=== PATIENT | female | born 1940 | race Caucasian/White ===

== ENCOUNTER 2020-08-04 00:06 | Inpatient (IN) | payer MEDICARE ==
[~2020-08-04] VITALS: Ht 162.6 cm; Wt 55.1 kg
[2020-08-04] MEDS ORDERED: MECLIZINE HCL25 MG PO (03:18)
[2020-08-04] MEDS ORDERED: VALIUM 5 MG TAB5 MG PO (03:19)
[2020-08-04] MEDS ORDERED: ATENOLOL100 MG PO (03:20)
[2020-08-04] MEDS ORDERED: LASIX20 MG PO (03:20)
[2020-08-04] MEDS ORDERED: VITAMIN D21250 MCG PO (03:23)
[2020-08-04] MEDS ORDERED: PLAVIX 75 MG TA75 MG PO (03:24)
[2020-08-04] MEDS ORDERED: KLOR-CON 1010 MEQ PO (03:24)
[2020-08-04] MEDS ORDERED: ASPIRIN 325MG325 MG PO (03:24)
[2020-08-04] MEDS ORDERED: IPRAT-ALBUT 0.5-3 ML INH (03:25)
[2020-08-04] MEDS ORDERED: PROTONIX20 MG PO (03:25)
[2020-08-04] MEDS ORDERED: LEVOTHYROXINE50 MC1 PO (03:25)
[2020-08-04] MEDS ORDERED: VENTOLIN HFA 66.7 GM INH (03:26)
[2020-08-04] MEDS ORDERED: VITAMIN B-1000 MCG/1 INJ (03:28)
[2020-08-04] MEDS ORDERED: HYDROCODONE-AC1 EAC1 PO (03:29)
[2020-08-04 05:27] LABS: HEMOGLOBIN 10.9 gm/dl (12.3-15.3); RED BLOOD COUNT 3.98 M/UL (4.00-5.10); WHITE BLOOD COUNT 9.7 K/UL (4.5-11.0)
[2020-08-04 05:58] LABS: BUN/CREATININE RATIO 28 (0-10)
--- NOTE | 2020-08-04 13:00 | NUR ---
REPORT CALLED TO ROBBY FARLEY ON [facility] 5 WITH ALL QUESTIONS ASKED AND ANSWERED
[2020-08-05 03:09] LABS: HEMOGLOBIN 10.4 gm/dl (12.3-15.3); RED BLOOD COUNT 3.84 M/UL (4.00-5.10)
[2020-08-05 03:31] LABS: BUN/CREATININE RATIO 29 (0-10)
[2020-08-05 11:01] LABS: HEMOGLOBIN 9.9 gm/dl (12.3-15.3); RED BLOOD COUNT 3.7 M/UL (4.00-5.10); WHITE BLOOD COUNT 10.6 K/UL (4.5-11.0)
[2020-08-06 05:20] LABS: HEMOGLOBIN 8.4 gm/dl (12.3-15.3)
[2020-08-06 05:21] LABS: RED BLOOD COUNT 3.08 M/UL (4.00-5.10); WHITE BLOOD COUNT 15.4 K/UL (4.5-11.0)
[2020-08-07 06:13] LABS: HEMOGLOBIN 7.8 gm/dl (12.3-15.3); RED BLOOD COUNT 2.87 M/UL (4.00-5.10)
[2020-08-07 06:14] LABS: WHITE BLOOD COUNT 11.1 K/UL (4.5-11.0)
--- NOTE | 2020-08-07 14:54 | NUR ---
patient pulse ox decrease to 70's-80's in fraction of a second, instructed patient to perform deep breathing and pulse ox increase to 100. no s/sx of respiratory distress noted. nurse seen the pulse ox reading from the monitor in 5th floor.
--- NOTE | 2020-08-07 15:28 | NUR ---
contacted tele and informed of patient telemetry box appears to be not working. patient has been going in and out of the telemetry reading. notified telebox to send a new telemetry bpx. continue to monitor patient with pulse ox reading 70's to 80's range. patient continue to show no s/sx of respiratory insufficiency. pulse ox will go to 95-98 range
--- NOTE | 2020-08-07 15:48 | NUR ---
frequent fluctuations of pulse ox reading noted. request to resend another cable. patient fingers cold to touch maybe another variant for having different fluactuations on pulse ox reading. patient cont to show no s/sx of respiratory insufficiency.
--- NOTE | 2020-08-07 16:31 | NUR ---
after changing site of where to obtain pulse ox sat, patient sat on monitor ranges 100%.
[2020-08-07 19:39] LABS: HEMOGLOBIN 7.8 gm/dl (12.3-15.3); RED BLOOD COUNT 2.85 M/UL (4.00-5.10); WHITE BLOOD COUNT 10.8 K/UL (4.5-11.0)
[2020-08-08 03:52] LABS: HEMOGLOBIN 7.4 gm/dl (12.3-15.3); RED BLOOD COUNT 2.76 M/UL (4.00-5.10); WHITE BLOOD COUNT 10.2 K/UL (4.5-11.0)
[2020-08-08 04:15] LABS: BUN/CREATININE RATIO 32 (0-10)
[2020-08-09 08:10] LABS: HEMOGLOBIN 7.5 gm/dl (12.3-15.3); RED BLOOD COUNT 2.78 M/UL (4.00-5.10); WHITE BLOOD COUNT 12.7 K/UL (4.5-11.0)
--- NOTE | 2020-08-09 15:31 | NUR ---
ATTEMPTED TO CONTACT PATIENTS DAUGHTER FOR CONSENT FOR BLOOD TRANSFUSION AT THIS TIME WITH NO ANSWER. LEFT A MESSAGE WITH NO RESPSONSE STILL. WILL CONTINUE TO TRY AND CALL BACK FOR CONSENT.
--- NOTE | 2020-08-10 01:24 | NUR ---
Blood stop time 2114 no reaction noted. One hour post transfusion, no reaction noted. At 0000 pt temp 100.7 gave hydrocodone with tylenol and will recheck. at 0115 temp recheck is 97.9.
[2020-08-10 06:49] LABS: HEMOGLOBIN 8.3 gm/dl (12.3-15.3); WHITE BLOOD COUNT 10.4 K/UL (4.5-11.0)
[2020-08-10 06:50] LABS: RED BLOOD COUNT 3.07 M/UL (4.00-5.10)
[2020-08-10 07:15] LABS: BUN/CREATININE RATIO 31 (0-10)
[2020-08-11 05:10] LABS: HEMOGLOBIN 9.6 gm/dl (12.3-15.3); WHITE BLOOD COUNT 12.5 K/UL (4.5-11.0)
[2020-08-11 05:13] LABS: RED BLOOD COUNT 3.51 M/UL (4.00-5.10)
[2020-08-12 09:31] LABS: HEMOGLOBIN 10.6 gm/dl (12.3-15.3)
[2020-08-12 09:33] LABS: RED BLOOD COUNT 3.97 M/UL (4.00-5.10); WHITE BLOOD COUNT 22.1 K/UL (4.5-11.0)
[2020-08-13 03:26] LABS: HEMOGLOBIN 9.6 gm/dl (12.3-15.3)
[2020-08-13 03:27] LABS: RED BLOOD COUNT 3.48 M/UL (4.00-5.10); WHITE BLOOD COUNT 14.3 K/UL (4.5-11.0)
[2020-08-14 03:48] LABS: HEMOGLOBIN 9.5 gm/dl (12.3-15.3); RED BLOOD COUNT 3.53 M/UL (4.00-5.10)
[2020-08-14 03:53] LABS: WHITE BLOOD COUNT 21.9 K/UL (4.5-11.0)
--- NOTE | 2020-08-14 16:25 | NUR ---
pulse ox was pulled out by patient. no resp distress noted
[2020-08-15 04:04] LABS: HEMOGLOBIN 9.7 gm/dl (12.3-15.3); RED BLOOD COUNT 3.6 M/UL (4.00-5.10); WHITE BLOOD COUNT 19.7 K/UL (4.5-11.0)
--- NOTE | 2020-08-15 19:07 | NUR ---
chart review at 1800 not completed by dayshift
[2020-08-16 02:49] LABS: HEMOGLOBIN 9.4 gm/dl (12.3-15.3); RED BLOOD COUNT 3.53 M/UL (4.00-5.10); WHITE BLOOD COUNT 17.4 K/UL (4.5-11.0)
[2020-08-18 04:37] LABS: HEMOGLOBIN 9.6 gm/dl (12.3-15.3); RED BLOOD COUNT 3.54 M/UL (4.00-5.10); WHITE BLOOD COUNT 16.1 K/UL (4.5-11.0)
[2020-08-20 05:31] LABS: HEMOGLOBIN 9.2 gm/dl (12.3-15.3); RED BLOOD COUNT 3.39 M/UL (4.00-5.10); WHITE BLOOD COUNT 12.5 K/UL (4.5-11.0)
[2020-08-20] MEDS ORDERED: HYDROCODONE-AC1 EAC1 PO (14:59)
[2020-08-20] MEDS ORDERED: ALPRAZOLAM0.5 MG PO (14:59)
[2020-08-20] MEDS ORDERED: BUDESONIDE0.5 MG/2 M NEB (14:59)
[2020-08-20] MEDS ORDERED: HUMALOG 10100 UNITS/ SC (15:05)
== END 2020-08-20 19:30 | DRG 480 ==
LOC: M/S 01:34 → PROG CARE 01:34 → M/S 14:40 → PROG CARE 08-11 16:15 → M/S 08-13 18:19
PROVIDERS: Internal Medicine; Internal Medicine Infectious Disease; Internal Medicine Pulmonary Disease; Orthopaedic Surgery; ADMIT Internal Medicine
PROC: B24BZZ4 Ultrasonography of Heart with Aorta, Transesophageal (ICD-10-PCS; 2020-08-04)
PROC: 0QS606Z Reposition Right Upper Femur with Intramedullary Internal Fixation Device, Open Approach (ICD-10-PCS; principal; 2020-08-05 09:00)
PROC: 30233N1 Transfusion of Nonautologous Red Blood Cells into Peripheral Vein, Percutaneous Approach (ICD-10-PCS; 2020-08-09)
DX: S72.141A Displaced intertrochanteric fracture of right femur, initial encounter for closed fracture (principal); J69.0 Pneumonitis due to inhalation of food and vomit; E43 Unspecified severe protein-calorie malnutrition; A41.9 Sepsis, unspecified organism; R65.20 Severe sepsis without septic shock; J96.21 Acute and chronic respiratory failure with hypoxia; J96.22 Acute and chronic respiratory failure with hypercapnia; D62 Acute posthemorrhagic anemia; J44.1 Chronic obstructive pulmonary disease with (acute) exacerbation; I48.20 Chronic atrial fibrillation, unspecified; J44.0 Chronic obstructive pulmonary disease with (acute) lower respiratory infection; E87.2 Acidosis; F03.91 Unspecified dementia, unspecified severity, with behavioral disturbance; L03.115 Cellulitis of right lower limb; Z20.822 Contact with and (suspected) exposure to COVID-19; W18.30XA Fall on same level, unspecified, initial encounter; R59.9 Enlarged lymph nodes, unspecified; E87.6 Hypokalemia; R13.10 Dysphagia, unspecified; E86.0 Dehydration; I50.9 Heart failure, unspecified; E53.8 Deficiency of other specified B group vitamins; F17.210 Nicotine dependence, cigarettes, uncomplicated; E16.2 Hypoglycemia, unspecified; E55.9 Vitamin D deficiency, unspecified; R29.6 Repeated falls; L89.316 Pressure-induced deep tissue damage of right buttock; Z79.01 Long term (current) use of anticoagulants; Y93.9 Activity, unspecified; Z88.1 Allergy status to other antibiotic agents; Z88.2 Allergy status to sulfonamides; Z88.8 Allergy status to other drugs, medicaments and biological substances; Z86.73 Personal history of transient ischemic attack (TIA), and cerebral infarction without residual deficits; Y92.9 Unspecified place or not applicable; Z68.20 Body mass index [BMI] 20.0-20.9, adult; Z99.81 Dependence on supplemental oxygen; Z90.5 Acquired absence of kidney; Z79.82 Long term (current) use of aspirin
CPT/HCPCS: ECHO; 36415; 36430; 36600; 71045; 71250; 73502; 73552; 74230; 76000; 80048; 80053; 81001; 82550; 82553; 82607; 82746; 82803; 82962; 83605; 83735; 83880; 84100; 84132; 84439; 84443; 84484; 85025; 85027; 85610; 86140; 86850; 86900; 86901; 86920; 87040; 87086; 92526; 92610; 92611-GN; 93005; 93306; 93971; 94640; 94660; 94664; 94760; 97110; 97110-GP-CQ; 97162; 97164; 97166; 97530; 97530-GP-CQ; A6212; C1713; J0690; J0696; J1100; J1650; J1940; J2001; J2020; J2405; J2543; J2704; J2710; J3010; J7030; J7040; J7050; J7060; J7120; P9016; U0002